=== PATIENT | male | born 1965 | race African-American/Black ===

== ENCOUNTER 2017-04-04 18:41 | Emergency (ER) | payer SELFPAY ==
[2017-04-04 17:36] LABS: BASOPHILS 0.2 %; BASOPHILS ABSOLUTE 0.02 10/3/uL (0.0-0.16); EOSINOPHILS 3.6 %; HEMATOCRIT 39.8 % (40.0-51.0); HEMOGLOBIN 14.2 g/dL (13.6-17.8); IMMATURE GRANULOCYTES 0.2 %; IMMATURE GRANULOCYTES ABSOLUTE 0.02 10/3/uL (0.0-0.11); LYMPHOCYTES 27.2 %; LYMPHOCYTES ABSOLUTE 2.25 10/3/uL (0.67-4.30); MEAN CORPUS HGB CONC 35.7 g/dL (32.0-36.0); MEAN CORPUSCULAR HEMOGLOB 30.2 pg (26.0-34.0); MEAN CORPUSCULAR VOLUME 84.7 fL (80-100); MEAN PLATELET VOLUME 10.8 fL (9.2-13.0); MONOCYTES 5.1 %; MONOCYTES ABSOLUTE 0.42 10/3/uL (0.21-1.20); NEUTROPHILS 63.7 %; NEUTROPHILS ABSOLUTE 5.26 10/3/uL (2.02-8.40); PLATELET COUNT 273 10/3/uL (150-400); RBC DISTRIBUTION WIDTH 12.3 % (12.0-16.0); WHITE BLOOD CELLS 8.3 10/3/uL (4.5-10.5)
[2017-04-04 17:37] LABS: MANUAL DIFF NO %
[2017-04-04 17:49] LABS: BUN (BLOOD UREA NITROGEN) 15 MG/DL (6-23); CHLORIDE, SERUM 109 MMOL/L (96-112); CO2 (CARBON DIOXIDE) 28 MMOL/L (24-34); CREATININE 1.01 MG/DL (0.70-1.30); GFR AFRICAN AMERICAN 100 ML/MIN (>=60); GFR NON AFRICAN AMERICAN 86 ML/MIN (>=60); GLUCOSE, SERUM 125 MG/DL (60-99); POTASSIUM, SERUM 3.8 MMOL/L (3.5-5.3); SODIUM, SERUM 142 MMOL/L (135-148)
== END 2017-04-04 19:07 | disposition home or self-care (01) ==
LOC: ER 18:41
PROVIDERS: Nurse Practitioner
PROC: 0H9FXZZ Drainage of Right Hand Skin, External Approach (ICD-10-PCS; principal; 2017-04-04)
DX: L02.511 Cutaneous abscess of right hand (principal); L03.011 Cellulitis of right finger; F17.200 Nicotine dependence, unspecified, uncomplicated
CPT/HCPCS: 73140-RT; 80048; 85025; 87040; 90471; 90714; 96374; 99284; A9270-GY; J0690